=== PATIENT | female | born 1935 | race Caucasian/White ===

== ENCOUNTER 2017-12-04 15:27 | Emergency (ER) | payer MEDICARE, BC ==
[~2017-12-04] VITALS: Ht 124.5 cm; Wt 68.0 kg
[~2017-12-04 15:27] MED LIST: ANTIVERT25 MG PO; ARICEPT10 M1 PO; ASPIR 8181 MG PO; BENTYL 20 MG TA20 M1 PO; ESTRIOL100 GM MC; FISH OIL 1,001000 M2 PO; HYDROCODONE-AP1 EAC6 PO; HYDROXYCHLOROQ200 M1 PO; LEVAQUIN 750 M750 MG PO; LIPITOR 20 MG T20 M1 PO; MACRODANTIN50 M1 PO; OMEPRAZOLE20 M1 PO; ORENCIA50 MG/0.4 IV; REFRESH CELLUVI1 APP GTT; TIMOLOL GL0.5 %/5 M1 OP; VITAMIN D2000 UNIT PO
[2017-12-04] MEDS ORDERED: RECLAST 55 MG/1002 IVPB (15:49)
[2017-12-04] MEDS ORDERED: XALATAN2.5 ML OPHTHALMIC (15:49)
[2017-12-04] MEDS ORDERED: PROLOPRIM100 MG PO (15:50)
[2017-12-04 16:12] LABS: URINE BILIRUBIN NEGATIVE (Negative); URINE BLOOD NEGATIVE (Negative); URINE CLARITY CLEAR; URINE COLOR YELLOW; URINE GLUCOSE-RANDOM NEGATIVE (Negative); URINE KETONES NEGATIVE (Negative); URINE LEUKOCYTES NEGATIVE (Negative); URINE NITRITE NEGATIVE (Negative); URINE PROTEIN NEGATIVE (Negative); URINE UROBILINOGEN 0.2 E.U./dl (0.2-1.0)
[2017-12-04] MEDS ORDERED: LIDOCAINE 2%2 %/5 GM TOP (17:26)
[2017-12-04 17:43] VITALS: BP 159/43
== END 2017-12-04 17:46 | disposition home or self-care (01) ==
LOC: M.ERS 15:27
PROVIDERS: Nurse Practitioner Family
DX: N89.8 Other specified noninflammatory disorders of vagina (principal); F52.31 Female orgasmic disorder

== ENCOUNTER → 2018-01-10 | Outpatient (CLI) | payer MEDICARE, BC ==
[~2018-01-10] MED LIST changes: +LIDOCAINE 2%2 %/5 GM TOP; +PROLOPRIM100 MG PO; +RECLAST 55 MG/1002 IVPB; +XALATAN2.5 ML OPHTHALMIC
== END ==
LOC: M.RAD 15:48
DX: Z12.31 Encounter for screening mammogram for malignant neoplasm of breast (principal); M81.0 Age-related osteoporosis without current pathological fracture; M05.79 Rheumatoid arthritis with rheumatoid factor of multiple sites without organ or systems involvement

== ENCOUNTER → 2018-03-22 | Outpatient (CLI) | payer MEDICARE, BC | LOC: M.ULTRA 14:00 | DX: J98.4 Other disorders of lung (principal); M79.89 Other specified soft tissue disorders; M85.89 Other specified disorders of bone density and structure, multiple sites; I70.0 Atherosclerosis of aorta; M79.604 Pain in right leg; M79.605 Pain in left leg; R60.0 Localized edema; R01.1 Cardiac murmur, unspecified ==

== ENCOUNTER 2018-08-25 07:42 | Emergency (ER) | payer MEDICARE, BC ==
[~2018-08-25] VITALS: Ht 147.3 cm; Wt 68.0 kg
[2018-08-25 08:28] LABS: ABSOLUTE EOSINOPHILS 0.2 thou/uL (0.0-0.7); ABSOLUTE LYMPHOCYTES 2.5 thou/uL (0.8-5.3); ABSOLUTE MONOCYTES 0.6 thou/uL (0.0-1.2); ABSOLUTE NEUTROPHILS 2.6 thou/uL (1.6-8.1); BASOPHILS 0.6 %; EOSINOPHILS 3.2 %; HEMATOCRIT 40.5 % (37.0-47.0); HEMOGLOBIN 13.3 gm/dL (12.0-15.0); LYMPHOCYTES 41.7 %; MCH 29.2 pg (26.0-34.0); MCHC 32.8 g/dL (28.0-37.0); MCV 89.2 fL (80.0-100.0); MONOCYTES 10.4 %; MPV 9.2 fl. (7.2-11.1); NUCLEATED RBCS 0 /100WBC; PLATELET COUNT* 155 thou/uL (150-400); POLYS 44.1 %; RBC 4.54 mil/uL (4.20-5.00); RDW-CV 15.2 % (10.5-14.5)
[2018-08-25 08:36] LABS: ANION GAP 10 mmol/L (7-16); BUN 11 mg/dL (7-18); CALCIUM 8.9 mg/dL (8.5-10.1); CHLORIDE 109 mmol/L (98-107); CO2 26 mmol/L (21-32); CREATININE 0.7 mg/dL (0.6-1.3); GLUCOSE 99 mg/dL (70-99); SODIUM 145 mmol/L (136-145)
[2018-08-25 08:48] LABS: ALBUMIN 3.3 g/dL (3.4-5.0); ALKALINE PHOSPHATASE 54 U/L (46-116); LIPASE 112 U/L (73-393); SGOT 19 U/L (15-37); SGPT 20 U/L (30-65); TOTAL BILIRUBIN 0.5 mg/dL (<0.1-1.0); TOTAL PROTEIN 6.7 g/dL (6.4-8.2); TROPONIN-I LEVEL <0.06 ng/mL (<0.06)
[2018-08-25 08:56] LABS: URINE BILIRUBIN NEGATIVE (Negative); URINE BLOOD 1+ (Negative); URINE CLARITY CLOUDY; URINE COLOR STRAW; URINE GLUCOSE-RANDOM NEGATIVE (Negative); URINE KETONES NEGATIVE (Negative); URINE PROTEIN NEGATIVE (Negative); URINE UROBILINOGEN 0.2 E.U./dl (0.2-1.0)
[2018-08-25 08:58] LABS: URINE LEUKOCYTES-REFLEX 3+ (Negative); URINE NITRITE-REFLEX POSITIVE (Negative)
[2018-08-25 09:01] LABS: SQUAMOUS >10 Many /LPF (0-3); URINE WBC-REFLEX >25 Many /HPF (0-5)
[2018-08-25 09:02] LABS: BACTERIA-REFLEX >30 Many /HPF (None Seen); MUCUS None Seen strn/LPF (None Seen); URINE RBC 0-2 Rare /HPF (0-2)
[2018-08-25 09:03] LABS: CASTS None Seen /LPF (None Seen); CRYSTALS None Seen /LPF (None Seen); WBC CLUMPS Moderate (None Seen)
[2018-08-25] MEDS ORDERED: PHENAZOPYRIDIN200 M2 PO (09:40)
[2018-08-25] MEDS ORDERED: KEFLEX500 M1 PO (09:40)
[2018-08-25 10:00] VITALS: BP 108/45
--- NOTE | 2018-08-26 12:41 | EKG ---
[place] [address] ELECTROCARDIOGRAM REPORT Name: ROBERT JACKSON Room: [facility]#: [id number] Admission: 08/25/18 Attend Phys: Discharge: 08/25/18 Date of : 33 Report #: [id number] THIS REPORT FOR: //name// [facility] ED Test Date: 2018-08-25 Test Time: 08:17:59 Pat Name: ROBERT JACKSON Department: Room: Gender: F Physical Therapist Technician: Estefany DIALLO : 1935 Requested By: Morris Bird Order Number: [id number] MD: Chris Blanco Measurements Intervals [place] Rate: 69 P: 52 LA: 182 QRS: -28 QRSD: 88 T: 14 QT: 357 QTc: 383 Interpretive Statements Sinus rhythm Probable left atrial enlargement Borderline left axis deviation Minimal ST elevation, inferior leads Compared to ECG 09/15/2016 16:01:31 First degree AV block no longer present Myocardial infarct finding no longer present ST (T wave) deviation still present Electronically Signed On 08-26-2018 12:41:02 CDT by Chris Blanco [email or web address] <ELECTRONICALLY SIGNED> By: Chris Blanco MD, [facility] 08/26/18 1241 6 6 Chris Blanco MD, [facility] /EPI
== END 2018-08-25 10:01 | disposition home or self-care (01) ==
LOC: M.ERS 07:42
PROVIDERS: Emergency Medicine Emergency Medical Services
DX: N39.0 Urinary tract infection, site not specified (principal); M06.9 Rheumatoid arthritis, unspecified; F03.90 Unspecified dementia, unspecified severity, without behavioral disturbance, psychotic disturbance, mood disturbance, and anxiety; K21.9 Gastro-esophageal reflux disease without esophagitis; Z87.440 Personal history of urinary (tract) infections; Z90.710 Acquired absence of both cervix and uterus; Z86.73 Personal history of transient ischemic attack (TIA), and cerebral infarction without residual deficits

== ENCOUNTER 2019-07-15 15:22 | Inpatient (IN) | payer MEDICARE, BC ==
[~2019-07-15] VITALS: Ht 157.5 cm; Wt 59.2 kg
[~2019-07-15 15:22] MED LIST changes: -HYDROCODONE-AP1 EAC6 PO; +KEFLEX500 M1 PO; +NORCO 5-325 TA1 EAC2 PO; +PHENAZOPYRIDIN200 M2 PO; -REFRESH CELLUVI1 APP GTT; +REFRESH CELLUVI1 APP OPHTHALMIC
[2019-07-15 15:26] VITALS: BP 163/65
[2019-07-15] MEDS ORDERED: ORENCIA CL125 MG/1 M IV (15:30)
[2019-07-15] MEDS ORDERED: OXYBUTYNIN 5 MG5 M2 PO (15:32)
[2019-07-15 15:51] LABS: URINE BILIRUBIN NEGATIVE (Negative); URINE BLOOD 1+ (Negative); URINE CLARITY CLOUDY; URINE COLOR DARK YELLOW; URINE GLUCOSE-RANDOM NEGATIVE (Negative); URINE KETONES NEGATIVE (Negative); URINE LEUKOCYTES-REFLEX 1+ (Negative); URINE PROTEIN 2+ (Negative); URINE SPECIFIC GRAVITY >= 1.030 (1.005-1.030); URINE UROBILINOGEN 0.2 E.U./dl (0.2-1.0)
[2019-07-15 15:55] LABS: URINE NITRITE-REFLEX POSITIVE (Negative)
[2019-07-15 16:12] LABS: BACTERIA-REFLEX >30 Many /HPF (None Seen); SQUAMOUS 0-3 Few /LPF (0-3); URINE RBC 3-10 Few /HPF (0-2); URINE WBC-REFLEX >25 Many /HPF (0-5); WBC CLUMPS Many (None Seen)
[2019-07-15 16:13] LABS: CASTS None Seen /LPF (None Seen); CRYSTALS None Seen /LPF (None Seen)
[2019-07-15 16:17] LABS: ABSOLUTE LYMPHOCYTES 1.2 thou/uL (0.8-5.3); ABSOLUTE MONOCYTES 0.8 thou/uL (0.0-1.2); BASOPHILS 0.4 %; EOSINOPHILS 0.1 %; HEMATOCRIT 33.3 % (37.0-47.0); HEMOGLOBIN 11.3 gm/dL (12.0-15.0); LYMPHOCYTES 10.6 %; MCHC 33.9 g/dL (28.0-37.0); MCV 88.4 fL (80.0-100.0); MONOCYTES 6.9 %; NUCLEATED RBCS 0 /100WBC; PLATELET COUNT* 137 thou/uL (150-400); RBC 3.76 mil/uL (4.20-5.00); RDW-CV 13.8 % (10.5-14.5)
[2019-07-15 16:23] LABS: CREATININE 0.7 mg/dL (0.6-1.3); POTASSIUM 4.1 mmol/L (3.5-5.1)
[2019-07-15 16:24] LABS: APTT 22.1 Seconds (25.0-31.3); PROTIME 10.7 Seconds (9.20-11.50)
[2019-07-15 16:35] LABS: ALBUMIN 2.7 g/dL (3.4-5.0); TOTAL BILIRUBIN 0.9 mg/dL (<0.1-1.0)
[2019-07-15 18:28] VITALS: BP 135/70
[2019-07-15 19:30] VITALS: BP 158/78
[2019-07-16 07:55] VITALS: BP 130/46
[2019-07-16 09:32] LABS: ABSOLUTE LYMPHOCYTES 1.3 thou/uL (0.8-5.3); ABSOLUTE MONOCYTES 0.9 thou/uL (0.0-1.2); BASOPHILS 0.3 %; EOSINOPHILS 0.1 %; HEMATOCRIT 28.5 % (37.0-47.0); HEMOGLOBIN 9.5 gm/dL (12.0-15.0); LYMPHOCYTES 12.4 %; MCH 30.4 pg (26.0-34.0); MCHC 33.5 g/dL (28.0-37.0); MCV 90.9 fL (80.0-100.0); MONOCYTES 8.4 %; MPV 8.8 fl. (7.2-11.1); NUCLEATED RBCS 0 /100WBC; PLATELET COUNT* 118 thou/uL (150-400); POLYS 78.8 %; RBC 3.13 mil/uL (4.20-5.00); WBC 10.1 thou/uL (4.0-11.0)
[2019-07-16 09:38] LABS: CALCIUM 7.3 mg/dL (8.5-10.1); CREATININE 0.5 mg/dL (0.6-1.3); POTASSIUM 3.3 mmol/L (3.5-5.1)
--- NOTE | 2019-07-16 10:44 | EKG ---
[place] [address] ELECTROCARDIOGRAM REPORT Name: ROBERT JACKSON Room: [address] ADM IN [facility].#: [id number] Admission: 07/15/19 Attend Phys: Mitchell Hugo, Discharge: Date of : 33 Date of Service: 07/15/19 1555 Report #: [id number] THIS REPORT FOR: //name// [facility] ED Test Date: 2019-07-15 Test Time: 15:55:25 Pat Name: ROBERT JACKSON Department: Room: [facility] Gender: F Agronomy Supervisor: ALLY : 1935 Requested By: Femi Loving Order Number: [id number] MD: Jerry East Measurements Intervals [place] Rate: 98 P: 54 [place]: 236 QRS: -46 QRSD: 91 T: 34 QT: 310 QTc: 396 Interpretive Statements Sinus rhythm Prolonged OK interval Left atrial enlargement Left anterior fascicular block Abnormal R-wave progression, late transition Compared to ECG 08/25/2018 08:17:59 First degree AV block now present ST (T wave) deviation still present Electronically Signed On 07-16-2019 10:42:43 CDT by Jerry East [email or web address] <ELECTRONICALLY SIGNED> By: Jerry East MD, [facility] 07/16/19 1042 1555 1555 Jerry East MD, [facility] /EPI
[2019-07-17] VITALS: BP 113/70
[2019-07-17 04:00] VITALS: BP 96/59
[2019-07-17 05:01] LABS: ALBUMIN 2.1 g/dL (3.4-5.0); CREATININE 0.8 mg/dL (0.6-1.3); POTASSIUM 3.8 mmol/L (3.5-5.1); TOTAL BILIRUBIN 0.8 mg/dL (<0.1-1.0); TOTAL PROTEIN 5.4 g/dL (6.4-8.2)
[2019-07-17 07:55] VITALS: BP 121/54
--- NOTE | 2019-07-17 08:16 | OP ---
[address] [address] OPERATIVE REPORT Name: RENETTAROBERT JAVIER Room: [address] IN M.R.#: [id number] Admission: 07/15/19 Attend Phys: Mitchell Hugo MD Discharge: Date of : 33 Report #: [id number] THIS REPORT FOR: //name// cc: Patience Dove Linda J. DO THIS REPORT FOR: //name// CC: Mitchell Dove DATE OF SERVICE: 07/16/2019 PREOPERATIVE DIAGNOSIS: Left comminuted subtrochanteric with intertrochanteric hip fracture and osteoporosis. POSTOPERATIVE DIAGNOSIS: Left comminuted subtrochanteric with intertrochanteric hip fracture and osteoporosis. SURGERY PERFORMED: Castella long gamma intramedullary nail fixation of the fracture. SURGEON: Bill Arceo DO FIELD TALENT QUALIFICATION SPECIALIST: Andrea Parker DO SECOND DISABILITY SPECIALIST: Jon Ramos DO ANESTHESIA: General anesthetic plus iliofascial block. She received scheduled antibiotics per the hospitalist, was on some Rocephin and vancomycin. The patient has no specimens. Fracture was cleared to correlate with severe osteoporosis. ESTIMATED BLOOD LOSS: 100 mL. DRAINS: She has no drains. COMPLICATION: The distal IM transverse locking screw actually went through her osteoporotic lateral cortical bone and protruded out on the medial side, so I just removed it, pushing it back through a small medial incision. Otherwise, surgery went as planned. No other complications or long-term events. SURGERY IN DETAIL: The patient was taken to the operating room and placed in the bed, given a general anesthetic [place] [address] OPERATIVE REPORT Name: ROBERT JACKSON Room: [address] IN .R.#: [id number] Admission: 07/15/19 Attend Phys: Mitchell Hugo MD Discharge: Date of : 33 Report #: [id number] table. Hip fracture was reduced as best could be. AP and lateral views verifying the x-ray findings. I did have orthopedic control of the C-arm during surgery for visualization aspects of the fracture and reductions, etc. The patient at this point in time underwent a chlorhexidine prep and sterile draping for left femur surgery and hip surgery. Timeout was called and verified by everyone in the room for the left hip, femur. At this point in time, I made a starting incision just proximal and slightly posterior to the greater trochanter. Incision with a 20 blade scalpel through skin and subcutaneous tissues and tensor. I put a starting guidewire initially in there to try to get the starting drill guidewire to in place to drill over, but secondary to comminution, I actually had to make a separate incision below at the level of the fracture and reduce that as best I could be with using a hook as well as putting a derotation screw very proximal hugging the anterior cortex of the greater trochanter to femoral neck region. Once this was accomplished, the drill guide was easily placed and reamed with a 17 mm reamer and then I did place a guidewire down from proximal to distal to the knee. I did go ahead and verified at this point in time that the guidewire measurement was elected to be 360, so we did elect to take a 360 mm Lee T2 nail and appropriately reamed distally to 13 mm. There was really no reaming that came out. She had a very wide canal, so I did next go ahead and place that nail over the guidewire, seated it into appropriate position and removed the guidewire and appropriately placed the lag screw drill guide and sleeve through a small incision, advanced the guidewire and the drill guide into position measured to a 95 mm and a 95 mm was appropriately reamed and the lag screw was applied, locking it down with a set screw in place proximally. At this point in time, the guide system was removed from the nail and all wires were removed. I went down to address the distal aspect, using perfect cheesh-na technique for the distal screws. I started with the distal one and then went to the proximal one as we were tightening the distal screw and advancing it, it actually went into her cortical canal secondary to that severe osteoporosis and protruded out the medial side of the lag, so I did a chlorhexidine prep the medial side of the lag. I made a small incision at that appropriate level, used a bone tamp to push it right back through and removed it. A second locking screw was placed without any difficulty. We copiously irrigated all incisions. Deep layers closed with #1 Vicryl, subcutaneous tissues with 2-0 Vicryl in both an inverted fashion. Skin was stapled closed. Xeroform, 4 x 4s, compression dressings were applied, transferred off the table, taken to recovery in stable condition. I attest I was present for all critical aspects of surgery. Needle, instrument, sponge counts correct. <ELECTRONICALLY SIGNED> By: Bill Arceo DO 07/17/19 0816 1442 Randi Arceo DO /hugo
[2019-07-17 09:41] LABS: ABSOLUTE LYMPHOCYTES 1.6 thou/uL (0.8-5.3); ABSOLUTE MONOCYTES 1.4 thou/uL (0.0-1.2); ABSOLUTE NEUTROPHILS 10.1 thou/uL (1.6-8.1); BASOPHILS 0.3 %; HEMATOCRIT 21.7 % (37.0-47.0); LYMPHOCYTES 12.4 %; MCH 30.1 pg (26.0-34.0); MCHC 33.5 g/dL (28.0-37.0); MCV 89.9 fL (80.0-100.0); MONOCYTES 10.6 %; MPV 8.6 fl. (7.2-11.1); NUCLEATED RBCS 0 /100WBC; PLATELET COUNT* 148 thou/uL (150-400); POLYS 76.7 %; RBC 2.41 mil/uL (4.20-5.00); RDW-CV 14.1 % (10.5-14.5); WBC 13.2 thou/uL (4.0-11.0)
[2019-07-17 09:45] LABS: HEMOGLOBIN 7.2 gm/dL (12.0-15.0)
[2019-07-17] MEDS ORDERED: DORZOLAMIDE 2%10 ML OPHTHALMIC (13:19)
[2019-07-17 16:10] VITALS: BP 123/58
[2019-07-17 20:33] VITALS: BP 133/46
[2019-07-18] VITALS: BP 135/43
[2019-07-18 04:31] LABS: ABSOLUTE LYMPHOCYTES 1.9 thou/uL (0.8-5.3); ABSOLUTE MONOCYTES 1.5 thou/uL (0.0-1.2); ABSOLUTE NEUTROPHILS 10.7 thou/uL (1.6-8.1); BASOPHILS 0.2 %; LYMPHOCYTES 13.7 %; MCH 30.1 pg (26.0-34.0); MCHC 34.2 g/dL (28.0-37.0); MCV 87.9 fL (80.0-100.0); MONOCYTES 10.6 %; MPV 8.7 fl. (7.2-11.1); NUCLEATED RBCS 0 /100WBC; PLATELET COUNT* 146 thou/uL (150-400); POLYS 75.5 %; RBC 2.05 mil/uL (4.20-5.00); RDW-CV 14.1 % (10.5-14.5); WBC 14.1 thou/uL (4.0-11.0)
[2019-07-18 05:11] LABS: ALBUMIN 1.9 g/dL (3.4-5.0); CALCIUM 7.8 mg/dL (8.5-10.1); POTASSIUM 3.9 mmol/L (3.5-5.1); TOTAL BILIRUBIN 0.5 mg/dL (<0.1-1.0)
[2019-07-18 05:22] LABS: HEMOGLOBIN 6.1 gm/dL (12.0-15.0)
[2019-07-18 07:50] VITALS: BP 111/42
[2019-07-18 09:06] VITALS: BP 128/60; BP 132/49; BP 142/50; BP 142/55
[2019-07-18 12:05] VITALS: BP 115/47
[2019-07-18 14:05] LABS: HEMATOCRIT 23.2 % (37.0-47.0); HEMOGLOBIN 7.8 gm/dL (12.0-15.0)
[2019-07-18 16:28] VITALS: BP 117/53
[2019-07-18 21:27] VITALS: BP 154/80
[2019-07-19] VITALS: BP 126/50
[2019-07-19 04:00] VITALS: BP 138/70
[2019-07-19 08:00] VITALS: BP 123/62
[2019-07-19 10:47] LABS: ABSOLUTE EOSINOPHILS 0.1 thou/uL (0.0-0.7); ABSOLUTE LYMPHOCYTES 1.6 thou/uL (0.8-5.3); ABSOLUTE MONOCYTES 0.9 thou/uL (0.0-1.2); ABSOLUTE NEUTROPHILS 11.2 thou/uL (1.6-8.1); BASOPHILS 0.2 %; EOSINOPHILS 0.4 %; HEMOGLOBIN 7.7 gm/dL (12.0-15.0); LYMPHOCYTES 11.5 %; MCH 29.7 pg (26.0-34.0); MCHC 33.6 g/dL (28.0-37.0); MCV 88.6 fL (80.0-100.0); MONOCYTES 6.3 %; MPV 8.7 fl. (7.2-11.1); NUCLEATED RBCS 0 /100WBC; PLATELET COUNT* 167 thou/uL (150-400); POLYS 81.6 %; RDW-CV 14.1 % (10.5-14.5); WBC 13.8 thou/uL (4.0-11.0)
[2019-07-19 11:12] LABS: CALCIUM 7.4 mg/dL (8.5-10.1); CREATININE 0.8 mg/dL (0.6-1.3); POTASSIUM 3.6 mmol/L (3.5-5.1); TOTAL BILIRUBIN 0.9 mg/dL (<0.1-1.0); TOTAL PROTEIN 5.3 g/dL (6.4-8.2)
[2019-07-19 12:15] VITALS: BP 127/45
[2019-07-19 16:35] VITALS: BP 147/47
[2019-07-20] VITALS: BP 140/60
[2019-07-20 04:00] VITALS: BP 129/43
[2019-07-20 05:51] LABS: ABSOLUTE EOSINOPHILS 0.3 thou/uL (0.0-0.7); ABSOLUTE LYMPHOCYTES 2.1 thou/uL (0.8-5.3); ABSOLUTE MONOCYTES 0.9 thou/uL (0.0-1.2); ABSOLUTE NEUTROPHILS 8.1 thou/uL (1.6-8.1); BASOPHILS 0.4 %; EOSINOPHILS 2.8 %; HEMATOCRIT 21.9 % (37.0-47.0); HEMOGLOBIN 7.4 gm/dL (12.0-15.0); LYMPHOCYTES 18.2 %; MCH 29.9 pg (26.0-34.0); MCHC 33.8 g/dL (28.0-37.0); MCV 88.6 fL (80.0-100.0); MONOCYTES 7.9 %; MPV 8.4 fl. (7.2-11.1); NUCLEATED RBCS 0 /100WBC; PLATELET COUNT* 154 thou/uL (150-400); POLYS 70.7 %; RBC 2.47 mil/uL (4.20-5.00); RDW-CV 14.3 % (10.5-14.5); WBC 11.4 thou/uL (4.0-11.0)
[2019-07-20 06:25] LABS: ALBUMIN 1.8 g/dL (3.4-5.0); CALCIUM 7.4 mg/dL (8.5-10.1); CREATININE 0.7 mg/dL (0.6-1.3); POTASSIUM 3.8 mmol/L (3.5-5.1)
[2019-07-20 15:55] VITALS: BP 157/41
[2019-07-20 20:00] VITALS: BP 149/45
[2019-07-21 00:10] VITALS: BP 136/55
[2019-07-21 04:34] VITALS: BP 141/53
[2019-07-21 07:11] LABS: ABSOLUTE BASOPHILS 0.1 thou/uL (0.0-0.2); ABSOLUTE EOSINOPHILS 0.5 thou/uL (0.0-0.7); ABSOLUTE LYMPHOCYTES 1.9 thou/uL (0.8-5.3); ABSOLUTE MONOCYTES 1.1 thou/uL (0.0-1.2); ABSOLUTE NEUTROPHILS 7.7 thou/uL (1.6-8.1); BASOPHILS 0.5 %; EOSINOPHILS 4.4 %; HEMATOCRIT 21.7 % (37.0-47.0); HEMOGLOBIN 7.3 gm/dL (12.0-15.0); LYMPHOCYTES 17.1 %; MCH 29.6 pg (26.0-34.0); MCHC 33.4 g/dL (28.0-37.0); MCV 88.6 fL (80.0-100.0); MONOCYTES 9.5 %; MPV 9.2 fl. (7.2-11.1); NUCLEATED RBCS 0 /100WBC; PLATELET COUNT* 162 thou/uL (150-400); POLYS 68.5 %; RBC 2.45 mil/uL (4.20-5.00); RDW-CV 14.6 % (10.5-14.5); WBC 11.3 thou/uL (4.0-11.0)
[2019-07-21 07:36] LABS: ALBUMIN 1.8 g/dL (3.4-5.0); CALCIUM 7.3 mg/dL (8.5-10.1); CREATININE 0.6 mg/dL (0.6-1.3); POTASSIUM 3.5 mmol/L (3.5-5.1); TOTAL BILIRUBIN 1.1 mg/dL (<0.1-1.0); TOTAL PROTEIN 4.9 g/dL (6.4-8.2)
[2019-07-21 08:00] VITALS: BP 110/59
[2019-07-21 11:30] VITALS: BP 122/69
[2019-07-21 14:00] VITALS: BP 122/69
[2019-07-21] MEDS ORDERED: ELIQUIS2.5 MG PO (14:11)
[2019-07-21] MEDS ORDERED: ASPIRIN325 PO (14:16)
[2019-07-21] MEDS ORDERED: KEFLEX500 M1 PO (14:26)
--- NOTE | 2019-07-21 15:39 | 2DMMODE ---
[place] [address] 2 D/M-MODE ECHOCARDIOGRAM Name: RENETTAROBERTNEMO HERRERA Room: [address] IN M.Estefania.#: [id number] Admission: 07/15/19 Attend Phys: Mitchell Hugo, Discharge: 07/21/19 Date of : 33 Date of Service: 07/21/19 1538 Report #: [id number] THIS REPORT FOR: cc: Patience Dove,Chris White MD [facility] ~ APPROVED REPORT Study performed: 07/21/2019 10:10:02 EXAM: Comprehensive 2D, Doppler, and color-flow Echocardiogram Patient Location: In-Patient Room #: [facility] Status: routine BSA: 1.59 HR: 106 bpm BP: 141/53 mmHg Rhythm: NSR Other Information Technically limited study due to patient unable to tolerate test. Indications rule out thrombus source 2D Dimensions IVSd: 12.01 (7-11mm) LVOT Diam: 18.46 (18-24mm) Aortic Root: 27.55 mm Volumes Left Atrial Volume (Systole) LA ESV Index: 46.60 mL/m2 Aortic Valve AoV Peak Justen.: 2.71 m/s AO Peak Gr.: 29.45 mmHg LVOT Max P.37 mmHg AO Mean Gr.: 18.01 mmHg LVOT Mean P.26 mmHg LVOT Max V: 1.05 m/s AO V2 VTI: 49.59 cm LVOT Mean V: 0.70 m/s LUZMARIA (VTI): 0.97 cm2 LVOT V1 VTI: 17.88 cm Mitral Valve E/A Ratio: 0.60 [place] [address] 2 D/M-MODE ECHOCARDIOGRAM Name: ROBERT JACKSON Room: [address] M.R.#: [id number] Admission: 07/15/19 Attend Phys: Mitchell Hugo, Discharge: 07/21/19 Date of : 33 Date of Service: 07/21/19 1538 Report #: [id number] MV Decel. Time: 248.63 ms MV E Max Justen.: 0.69 m/s MV PHT: 72.10 ms MVA (PHT): 3.05 cm2 Tricuspid Valve RAP Estimate: 15.00 mmHg TR Peak Gr.: 40.08 mmHg RVSP: 55.00 mmHg PA Pressure: 55.00 mmHg Left Ventricle The left ventricle is normal size. There is normal LV segmental wall motion. There is normal left ventricular wall thickness. Left ventricular systolic function is normal. The left ventricular ejection fraction is within the normal range. LVEF is 60-65%. Grade I - abnormal relaxation pattern. Right Ventricle The right ventricle is normal size. The right ventricular systolic function is normal. Atria Left atrium is moderately dilated. The right atrium size is normal. Aortic Valve Moderate aortic valve sclerosis. Mild aortic regurgitation. Mild to moderate aortic stenosis. Mitral Valve There is mitral annular calcification. Mild mitral regurgitation. No evidence of mitral valve stenosis. Tricuspid Valve The tricuspid valve is normal in structure. Mild tricuspid regurgitation. Moderate pulmonary hypertension. Pulmonic Valve The pulmonary valve is normal in structure. There is no pulmonic valvular regurgitation. Great Vessels The aortic root is normal in size. IVC is dilated and collapses <50% with [place] [address] 2 D/M-MODE ECHOCARDIOGRAM Name: ROBERT JACKSON Room: [address] [place] .R.#: [id number] Admission: 07/15/19 Attend Phys: Mitchell Hugo, Discharge: 07/21/19 Date of : 33 Date of Service: 07/21/19 1538 Report #: [id number] There is no pericardial effusion. <Conclusion> The left ventricle is normal size. There is normal left ventricular wall thickness. Left ventricular systolic function is normal. The left ventricular ejection fraction is within the normal range. LVEF is 60-65%. Grade I - abnormal relaxation pattern. The right ventricle is normal size. Left atrium is moderately dilated. Moderate aortic valve sclerosis. Mild aortic regurgitation. Mild to moderate aortic stenosis. There is mitral annular calcification. Mild mitral regurgitation. No evidence of mitral valve stenosis. IVC is dilated and collapses <50% with inspiration. There is no pericardial effusion. There is normal LV segmental wall motion. <ELECTRONICALLY SIGNED> By: Chris Blanco MD, [facility] 07/21/19 1538 1538 1538 Chris Blanco MD, FACC /INF
== END 2019-07-21 15:20 | DRG 480 ==
LOC: M.ERS 15:22 → M.2W 17:29 → M.TBA-ER 17:29 → M.2W 18:33
PROVIDERS: Family Medicine; Internal Medicine; Nurse Practitioner; Orthopaedic Surgery; ADMIT Internal Medicine
PROC: 0QS706Z Reposition Left Upper Femur with Intramedullary Internal Fixation Device, Open Approach (ICD-10-PCS; 2019-07-16)
PROC: 30233N1 Transfusion of Nonautologous Red Blood Cells into Peripheral Vein, Percutaneous Approach (ICD-10-PCS; principal; 2019-07-18)
DX: M80.052A Age-related osteoporosis with current pathological fracture, left femur, initial encounter for fracture (principal); E43 Unspecified severe protein-calorie malnutrition; N39.0 Urinary tract infection, site not specified; D50.0 Iron deficiency anemia secondary to blood loss (chronic); F03.90 Unspecified dementia, unspecified severity, without behavioral disturbance, psychotic disturbance, mood disturbance, and anxiety; K21.9 Gastro-esophageal reflux disease without esophagitis; B96.20 Unspecified Escherichia coli [E. coli] as the cause of diseases classified elsewhere; M06.9 Rheumatoid arthritis, unspecified; I87.8 Other specified disorders of veins; Z86.73 Personal history of transient ischemic attack (TIA), and cerebral infarction without residual deficits; Z68.23 Body mass index [BMI] 23.0-23.9, adult; Z90.49 Acquired absence of other specified parts of digestive tract; Z90.710 Acquired absence of both cervix and uterus; Z79.82 Long term (current) use of aspirin; Z79.899 Other long term (current) drug therapy; W18.39XA Other fall on same level, initial encounter; Y93.89 Activity, other specified; Y92.002 Bathroom of unspecified non-institutional (private) residence as the place of occurrence of the external cause